=== PATIENT | male | born 1965 | race Caucasian/White ===

== ENCOUNTER 2020-12-14 16:02 | Emergency (ER) | payer OTHER ==
[2020-12-14] MEDS ORDERED: NORCO 325 MG-7.1 TA1 PO (18:24)
[2020-12-14 18:36] VITALS: BP 134/90
== END 2020-12-14 18:36 | disposition home or self-care (01) ==
LOC: ED 16:02
DX: S52.502A Unspecified fracture of the lower end of left radius, initial encounter for closed fracture (principal); W23.0XXA Caught, crushed, jammed, or pinched between moving objects, initial encounter; Y92.69 Other specified industrial and construction area as the place of occurrence of the external cause; Y99.0 Civilian activity done for income or pay

== ENCOUNTER → 2021-09-21 | Outpatient (CLI) | payer OTHER ==
[~2021-09-21] MED LIST: NORCO 325 MG-7.1 TA1 PO
== END ==
LOC: RAD 07:40
DX: S39.91XA Unspecified injury of abdomen, initial encounter (principal)

== ENCOUNTER 2023-02-28 13:00 | Outpatient (RCR) | payer OTHER | END 2023-03-30 | disposition home or self-care (01) | LOC: PT | DX: M16.12 Unilateral primary osteoarthritis, left hip (principal); Z96.642 Presence of left artificial hip joint ==

== ENCOUNTER 2023-05-31 08:00 | Outpatient (RCR) | payer OTHER | END 2023-06-29 | disposition home or self-care (01) | LOC: PT | DX: M16.12 Unilateral primary osteoarthritis, left hip (principal); Z96.642 Presence of left artificial hip joint ==